=== PATIENT | male | born 1990 | race African-American/Black ===

== ENCOUNTER 2017-06-17 12:18 | Emergency (ER) | payer SELFPAY ==
[~2017-06-17] VITALS: Ht 165.1 cm; Wt 83.9 kg
[2017-06-17 12:28] VITALS: BP 131/71
== END 2017-06-17 13:42 | disposition home or self-care (01) ==
LOC: ER 12:21
DX: Z48.01 Encounter for change or removal of surgical wound dressing (principal); B35.3 Tinea pedis
CPT/HCPCS: A4606; J7030; Z7502; Z7610